=== PATIENT | male | born 1955 | race Caucasian/White ===

== ENCOUNTER 2022-11-14 10:43 | Observation (INO) ==
--- NOTE | 2022-10-29 13:40 | PAT Medication Instructions ---
Medication Instructions Date of Service October 29, 2022 Home Medications atenolol 50 mg tablet 50 mg PO BID lisinopril 20 mg-hydrochlorothiazide 25 mg tablet 1 tab PO BID triamcinolone acetonide 0.1 % topical cream 1 applic topical BID PRN Skin Irritation warfarin 10 mg tablet 5 mg PO Q OTHER DAY krill oil 500 mg capsule 500 mg PO HS rosuvastatin 10 mg tablet 10 mg PO HS vitamin E 400 unit tablet 400 mg PO QAM ASK your prescriber and surgeon warfarin 10 mg tablet 5 mg PO Q OTHER DAY STOP taking 2 weeks before surgery (or as soon as possible if surgery is within 2 weeks) krill oil 500 mg capsule 500 mg PO HS vitamin E 400 unit tablet 400 mg PO QAM STOP taking 24 hours before surgery triamcinolone acetonide 0.1 % topical cream 1 applic topical BID PRN Skin Irritation DO NOT take the morning of surgery lisinopril 20 mg-hydrochlorothiazide 25 mg tablet 1 tab PO BID Take morning of surgery With a small sip of water, OTHERWISE NOTHING TO EAT OR DRINK AFTER MIDNIGHT: atenolol 50 mg tablet 50 mg PO BID Take evening before surgery atenolol 50 mg tablet 50 mg PO BID lisinopril 20 mg-hydrochlorothiazide 25 mg tablet 1 tab PO BID rosuvastatin 10 mg tablet 10 mg PO HS Other Notes If you have any questions please call us at [phone] or [phone] or [phone] or [phone]
--- NOTE | 2022-11-01 11:48 | Anesthesiology Consultation ---
Date of Service November 01, 2022 Assessment & Plan (1) Encounter for pre-operative examination: Plan - check coags STAT am DOS. - Outpatient joint assessment: Patient is currently scheduled for inpatient pathway. If re-evaluated pending system levels during current pandemic/surgeon requests outpatient pathway, patient is not acceptable candidate for outpatient joint program from anesthesia standpoint. Chart Review Chart Review: Acceptable Risk for Surgery and Patient seen in Pre Admission Testing Teaching & Discussion Pre-Anesthesia Teaching/Discussion Notes: Instructed NPO after midnight before surgery, except medications with 15 cc of water. Medication instructions provided according to the PAT guidelines. History Surgery Operation Date: 11/14/22 13:25 Proposed Procedures p Right Anatomic Shoulder Arthroplasty - Ramin Medellin MD Height/Weight Height: 5 ft 10 in Weight: 145.9 kg Allergies Allergy/AdvReac Type Severity Reaction Status Date / Time naproxen Allergy Unknown RASH Verified 10/29/22 09:12 Medications Home Medications Medication Instructions Recorded Confirmed Last Taken atenolol 50 mg tablet 50 mg PO BID 12/26/21 10/29/22 Unknown lisinopril 20 1 tab PO BID 12/26/21 10/29/22 Unknown mg-hydrochlorothiazide 25 mg tablet triamcinolone acetonide 0.1 % 1 applic topical BID PRN Skin 12/26/21 10/29/22 Unknown topical cream Irritation warfarin 10 mg tablet 5 mg PO Q OTHER DAY 12/26/21 10/29/22 Unknown krill oil 500 mg capsule 500 mg PO HS 10/29/22 10/29/22 Unknown rosuvastatin 10 mg tablet 10 mg PO HS 10/29/22 10/29/22 Unknown vitamin E 400 unit tablet 400 mg PO QAM 10/29/22 10/29/22 Unknown Past Medical History Medical History (Updated 11/04/22 @ 09:00 by Lisette Brennan PA-C) Deep vein thrombosis 2016, Right LE (and PE per PCP records),s/p knee injury. On Warfarin History of tachycardia ~1993 --> reason for atenolol. 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 Patient denies chest pain, shortness of breath, dyspnea on exertion, fever, chills, cough, or wheezing. Physical Exam Vital Signs Vitals BP 161/89 P 53 TEMP 98.7 SP02 95% on RA RESP 18 Physical Full cervical extension range of motion without pain TMD <3 finger breadths Mallampati Score 3 Dentition: several caps/crowns, implant front upper tooth; denies chipped or lo ose teeth or bridges Lungs: normal respiratory effort. Clear throughout to auscultation, no adventitious breath sounds Cardiac: regular rate and rhythm, no murmurs noted Carotid arteries: negative bruit bilat Lab Results Anesthesia Preop Results Results Anesthesia Widget: WBC 7.13 K/ul (4.8-10.8) 11/01/22 Hgb 15.5 g/dl (14.0-18.0) 11/01/22 Hct 45.5 % (40.1-51.0) 11/01/22 Plt 146 K/uL (130-400) 11/01/22 Na 141 mmol/L (136-145) 11/01/22 K 4.7 mmol/L (3.5-5.1) 11/01/22 Cl 103 mmol/L (98-107) 11/01/22 CO2 34 mmol/L (21-32) H 11/01/22 BUN 24 mg/dl (6-23) H 11/01/22 Creat 0.94 mg/dl (0.6-1.4) 11/01/22 Glucose Level 101 mg/dl (70-99(Fasting)) H 11/01/22 PT 21.1 Seconds (9.0-12.0) H 11/01/22 PTT 31.4 Seconds (21.0-31.0) H 11/01/22 INR 2.1 (0.9-1.1) H 11/01/22 HA1c 5.8 % (4.5-5.6) H 11/01/22 Blood Type A Positive 11/01/22 Antibody Screen NEGATIVE 11/01/22 Testing Electrocardiogram Date: 11/01/22 Sinus bradycardia, rate 50 bpm Chest X-Ray Date: 11/01/22 The heart is enlarged. The pulmonary vasculature is noncongested. The lungs and pleural spaces are clear. There is no pneumothorax. The skeletal structures are osteopenic. The bony thorax appears intact. Spondylotic change is noted in the spine. IMPRESSION: No active disease in the chest. COVID-19 Risk Screen Screening Information COVID-19 Screen Date: 11/01/22 Exposure 21 Days Family/Household +COVID Last 21 Days: No Exposure 10 Days Any COVID Exposure Last 10 Days: No Symptoms Last 10 Days Experienced COVID Sx Last 10 Days: No + COVID 0-90 Days COVID + in Last 0-90 Days: No
[~2022-11-14 10:43] MED LIST: BUPIVACAINE 0.5 % 5 MG/1 ML PF 10ML VIAL ONE; LR 15ML/HR IV SCH; LR 60ML/HR IV SCH
[2022-11-14 11:25] LABS: INR 1.1 (0.9-1.1); Partial Thromboplastin Ratio 0.9; Partial Thromboplastin Time 24.3 Seconds (21.0-31.0); Prothrombin Time 11.3 Seconds (9.0-12.0)
[2022-11-14] MEDS ORDERED: fentaNYL citrate 100 MCG/2 ML VIAL ONE (12:04)
[2022-11-14] MEDS ORDERED: MIDAZOLAM HCL 1 MG/ML 2ML VIAL ONE (12:04)
--- NOTE | 2022-11-14 12:30 | History & Physical Bridge Note ---
Date of Service November 14, 2022 History & Physical Bridge Note I have examined the patient, reviewed the History & Physical and in the interval since the performance of the History & Physical I have noted the following changes of clinical significance: no changes noted. Coumadin held since pm 11/08/22.
[2022-11-14] MEDS ORDERED: ePHEDrine sulfate 50 MG/ML AMP IV PRN (12:44)
[2022-11-14] MEDS ORDERED: ONDANSETRON INJ 2 MG/ML 2 ML VIAL IV PRN ×2 (12:44→17:57)
[2022-11-14] MEDS ORDERED: HYDROmorphone INJ 2 MG/ML SYR/VIAL IV PRN (12:44)
[2022-11-14] MEDS ORDERED: ATROPINE SULFATE 0.1 MG/ML 10ML SYR IV PRN (12:44)
[2022-11-14] MEDS ORDERED: fentaNYL citrate 100 MCG/2 ML VIAL IV PRN (12:44)
[2022-11-14] MEDS ORDERED: ePHEDrine sulfate 50 MG/ML AMP ONE (15:29)
[2022-11-14] MEDS ORDERED: ROCURONIUM BROMIDE 10 MG/ML 5 ML VIAL IV ONE (15:29)
[2022-11-14] MEDS ORDERED: PROPOFOL IV EMULSION 10 MG/ML 20 ML VIAL IV ONE (15:29)
[2022-11-14] MEDS ORDERED: ONDANSETRON INJ 2 MG/ML 2 ML VIAL ONE (15:29)
[2022-11-14] MEDS ORDERED: LIDOCAINE 2% MPF LOCAL 5 ML VIAL INFIL ONE (15:29)
[2022-11-14] MEDS ORDERED: DEXAMETHASONE SOD INJ 4 MG/ML VIAL ONE (15:29)
[2022-11-14] MEDS ORDERED: NEOSTIGMINE METHYLSULFATE 1 MG/ML 10ML VIAL ONE (16:04)
[2022-11-14] MEDS ORDERED: GLYCOPYRROLATE 0.2 MG/ML VIAL ONE (16:04)
--- NOTE | 2022-11-14 16:45 | Operative Report ---
PG Post Operative Report Pre & Post Diagnosis Operation Date: 11/14/22 13:35 Pre-Op Diagnosis: Right Shoulder Arthritis Post-Op Diagnosis: Right Shoulder Arthritis I identified the patient and participated in the time-out.: Yes Procedure Operation Date: 11/14/22 13:35 Actual Procedures p Right Anatomic Shoulder Arthroplasty, Cemented(Right) - Ramin Medellin MD Surgeon Ramin Medellin MD Histology Aide Ruben Guerra PA-C Estimated Blood Loss 100 Findings See Below [employer] anatomic shoulder arthroplasty was performed with preplanned patient's specific guides: [id number] micro, size 16 micro stem 55 mm length, 50 x 24 humeral head, cemented augmented glenoid right size 5 with trabecular metal post EXAMINATION UNDER ANESTHESIA: Preoperative exam under anesthesia revealed the followin degrees of forward flexion, 20 degrees external rotation at the side, 120 degrees of abduction, 60 degrees of external rotation and 10 degrees of internal rotation with the arm abducted. Postoperatively, range of motion parameters after implantation of prosthesis revealed a stable prosthesis with range of motion parameters as follows: 130 of forward flexion, 60 of external rotation at the side, 90 of abduction, 90 of external rotation with the arm abducted, 20 of internal rotation with the arm abducted. The patient's safe range of motion included the ability to get to the back of the head. Specimens Humeral head for pathology Drains none Anesthesia Type General Regional Complications none Disposition Accompanied Patient To Recovery: No Disposition: Recovery Room Indications 66-year-old male presented to clinic with refractory pain of his shoulder and limited motion because of glenohumeral arthritis. He has maximized nonoperative measures and I did offer him elective total shoulder arthroplasty, reverse or anatomic, based on his intraoperative findings. We did the patient specific guide program with [employer]. We reviewed this. I also reviewed the risks and benefits surgery in detail. Informed consent was documented in the clinic as he desired proceed with surgery to treat his shoulder pain. Description of Procedure The patient was identified in the preoperative holding area. The operative extremity was marked. Regional block was administered by Anesthesia. The patient was then brought to the operating room and placed supine. Preliminary time-out procedure was performed. All were in agreement. General endotracheal anesthesia was induced without any issues. The patient was sat up in around 40-45 degrees of inclination in the beachchair position. Exam under anesthesia was performed confirming the above findings. Preoperative antibiotics were administered. Sequential compressive devices were placed on her bilateral lower extremities for DVT prophylaxis. Bony prominences were inspected, well-padded and free of any evidence for peripheral nerve compression. The operative upper extremity was then prepped and draped in a normal standard fashion, with use of the Arthrex Trimano arm positioner. Prior to incision, a second time-out procedure was performed confirming the patient, site, laterality and the procedure. All were in agreement. 1. Right shoulder open reverse total shoulder replacement with augmented glenoid baseplate with patient specific guide: A deltopectoral incision was utilized. Incision was carried out sharply and with electrocautery through the skin and subcutaneous tissues. The deltopectoral interval was developed. The cephalic vein was taken laterally. Subdeltoid space was developed bluntly. A deltoid brown retractor was placed to retract the deltoid laterally and superiorly. 1 cm of the superior border of the pectoralis major tendon insertion site was released in standard fashion to improve exposure. Clavipectoral fascia was removed with electrocautery. Extensive subacromial bursitis was encountered and this was completely removed with a Bovie. The lateral aspect of the conjoined tendon was then followed to its insertion site on the coracoid. The conjoined tendon was retracted medially. The biceps tendon was identified, enlarged consistent with tendinopathy. It was released from the sheath using a Bovie and followed up into the rotator interval. A tenodesis was performed to the pectoralis major tendon as will be discussed in further detail below. A sharp Hohmann retractor was then placed into the interval and into the joint. Subscapularis tendon was still present and attached on the lesser tuberosity. The articular surface of the humeral head could be appreciated. The subscapularis tendon was then tagged with two #5 Ti-Cron sutures to gain control. Very thin lesser trochanteric osteotomy was conducted using a curved osteotome. The capsule and the subscapularis tendon were then released up the inferior humeral neck as one layer. The humeral head dislocated with successive extension and external rotation. There was significant fracture of the posterior inferior capsule. This was released using electrocautery while palpably protecting the axillary nerve. Visualization of the humeral head revealed significant osteoarthritis and wear. The supraspinatus was intact and without evidence of tendinosis. The cuff appeared sufficient for anatomic shoulder arthroplasty with the glenoid implants as planned. The top of the humeral head was identified. A starting awl was used sound the humeral canal. The bone quality was moderate. We opted to set the retroversion of the humeral cut at around 30 degrees of retroversion for the [place] retroversion. The humeral head resection was then made in parallel fashion to the guide. Sequential reaming was carried out up to a size 16 as the maximal stem size. Successive trial broaches were then broached up to a size 16, which gave us excellent press-fit. The trial stem was left in place. We then proceeded over to glenoid. An anterior glenoid neck retractor was placed. The MGHL and SGHL were released off of the muscular portion of the subscapularis being mindful of palpating and identifying the axillary nerve to make sure it was free of injury during releases. Next, the interval between the IGHL and the muscular portions of the subscapularis was identified. My finger was on the axillary nerve to protect it during releases. The IGHL was then released up to around the 7 o'clock position. A blunt retractor was then placed to retract the humerus posteriorly. A sharp Hohmann retractor was placed at the 12 o'clock position. The glenoid deformity was evaluated with assistance with the bone model. Extraneous capsulolabral tissue was dissected to reveal the bone anatomy. This confirmed our decision to proceed with preoperative virtual planning. The arm was placed around 30 degrees of flexion, 90 degrees of external rotation and 30 degrees of abduction to distract the humerus posteriorly. Labrum was circumferentially removed including the biceps tendon stump with a Bovie. A patient specific guide was used to place an initial guide pin, followed by the more superior pin. The patient specific guide was then removed. The custom reamer guide was placed on the superior pin and the reamer was brought down the central pin. Reaming was conducted based on the guide. Irrigation was used and we confirmed adequate reaming. The base protector bushing was then fastened to protect the surface from the augment reamer. The augment reamer sufficiently removed the cartilage surface. Copious irrigation was performed to irrigate out the joint. The trial size 5 large right augmented glenoid was impacted into place. Humerus was then brought back into view with external rotation, deltoid brown retractor and multiple blunt Homans. A trial head was then placed that seem to best match his anatomy. The humerus was then reduced onto the glenoid with the arm in abduction and external rotation. The arm was taken out of the acosta, taken through a physiologic range of motion. There is seem to be anterior instability with abduction and external rotation at 30 degrees. There also seem to be easy posterior shock. For that reason, I upsized the head and increased offset. The MRI was then reduced onto the glenoid component once again. No evidence for impingement. No evidence for kick off. No shuck. Minimal posterior translation. The arm was taken out of the acosta, taken through a physiologic range of motion. There was acceptable stability and appropriate soft tissue tension. Next, the trial humeral component was removed. We position for final glenoid component implantation. The arm was placed with their degrees abduction external rotation and extension. Posterior glenoid tractor was placed. Anterior and superior glenoid tractors were placed to show the surface of the glenoid. The trial component was removed. Thorough irrigation using pulse lavage was performed. All soft tissue on the periphery and in the central pegs was removed. Implant preparation on the back table was begun. 1 bag of cement was repaired with a 92nd mixing time under vacuum seal. Final glenoid irrigation was continued. Extensive suction was used. Once the glenoid surface clean and dry, cement was placed on the 3 pegs and on the backside of the glenoid component on the back table. The central peg was fixed to the polyethylene matching a trial implant. The final clinic implant was then placed manually down onto the glenoid with good reduction and fit. It was tamped into place. I then held firm pressure on the glenoid with the cement cured. The humeral head was then exposed once again. Humeral canal was copiously irrigated. Three 2.0 mm drill holes were then placed in the bicipital groove just lateral to the lesser tuberosity. Three #5 FiberWire stitches were then run through these drill holes and out the humeral neck for later repair of the subscapularis. The final humeral component was then brought back on to the field and seated firmly into the humerus. The FiberWire stitches for the subscapularis repair were routed around the component. Excellent press-fit was achieved. I retracted the head component and recheck the eccentricity. This was trialed and marked at maximal offset that was seen with the trial. The final humeral head component was placed in the back table of the tray. The eccentrically was dialed into the E position and it was fixed by malleting. Humeral head component was then placed on the stem and tapped down to lock it in. With the final components in place, humeral component was then reduced onto the glenoid and final postoperative range of motion assessment was performed. Stability confirmed. The subscapularis was then repaired to the humerus using a Floyd-Collins configuration. This completed the open total shoulder replacement. The wound was copiously irrigated. In addition, a 1 L dilute Betadine solution was irrigated through the field and left in place for 2 minutes. A repeat normal saline irrigation and lavage was performed to clear out the Betadine. 2. Open biceps tenodesis: As dictated above, enlargement of the biceps tendon was noted consistent with tendinopathy. A tenodesis was opted. The tendon was released from the bicipital sheath using a Bovie and then tenodesed to the pectoralis major tendon using a #2 FiberWire suture in [id number] fashion. The tendon was then followed up as proximal as could be visualized and then tenotomized. Remaining stump was removed just proximal to the tenodesis site. This completed the open biceps tenodesis. The wound was copiously irrigated. The deltopectoral incision was closed with continuous #1 Vicryl suture. Subcutaneous tissues were closed with #1 Vicryl suture in buried, interrupted fashion. Dermal closure was accomplished using 2- 0 Vicryl suture. Final skin closure was with leslie. The wound was dressed with sterile Xeroform, gauze, ABD and contained by Ioban. The patient was placed in a standard sling and turned over to the anesthesia team. The patient tolerated procedure well, was extubated in the operating without complication, and transferred to the PACU in stable condition. DISPOSITION: The patient will remain in sling for a total of 6 weeks. Hand, wrist, and elbow range of motion exercises may be initiated. After 6 weeks, the sling will be discontinued. Formal therapy will be initiated starting with gentle passive range of motion and active range of motion. No strengthening will be permitted before 12 weeks. When strengthening is allowed, only gentle strengthening will be allowed. Physician academic support assistant attestation: Ruben Guerra PA-C was present and scrubbed for the duration of the case. He was essential to prepping/draping, patient positioning, retraction, and assistance with wound closure. I attest to the content of the Intraoperative Record and any orders documented therein. Any exceptions are noted below.
--- NOTE | 2022-11-14 16:46 | Post Operative Brief Note ---
PG Immediate Post Op with CF Date of Surgery November 14, 2022 Pre & Post Diagnosis Operation Date: 11/14/22 13:35 Pre-Op Diagnosis: Right Shoulder Arthritis Post-Op Diagnosis: Right Shoulder Arthritis I identified the patient and participated in the time-out.: Yes Procedure Operation Date: 11/14/22 13:35 Actual Procedures p Right Anatomic Shoulder Arthroplasty, Cemented(Right) - Ramin Medellin MD Surgeon Ramin Medellin MD Stitcher Utility Ruben Guerra PA-C Estimated Blood Loss 100 Findings See Below Specimens Specimen Description: A. Portion of Right Humeral Head Anesthesia Type General Regional
--- NOTE | 2022-11-14 17:28 | XRay Report ---
XR shoulder RT min 2V routine CLINICAL HISTORY: Post shoulder surgery COMPARISON: Right shoulder radiographs August 23, [address] of the right shoulder October 14, 2022 . FINDINGS: Right basilar opacity favors atelectasis. Alignment of the right shoulder arthroplasty is anatomic. There is no definite periprosthetic fracture. A lucency projects over the right humeral lizzie physis, distal to the humeral component. There are skin leslie. No unexpected radiopaque foreign bod ies are present. IMPRESSION: 1. Status post right shoulder arthroplasty. No unexpected radiopaque foreign bodies. No definite mary prosthetic fracture. 2. Lucency projecting over the right humeral diaphysis. This is likely artifactual. A periprosthetic fracture is considered less likely however follow-up radiographs could be obtained. ACT 112: Negative or not required by law. Electronically signed by: Migel Brown M.D. 11/14/2022 5:27 PM
[2022-11-14] MEDS ORDERED: TRIAMCINOLONE ACET 0.1% CR 15 GM TUBE TOP PRN (17:57)
[2022-11-14] MEDS ORDERED: METOCLOPRAMIDE HCL INJ 5 MG/ML 2 ML VIAL IV PRN (17:57)
[2022-11-14] MEDS ORDERED: MAGNESIUM HYDROXIDE SUSP 30 ML UDC PO PRN (17:57)
[2022-11-14] MEDS ORDERED: NALOXONE HCL 0.4 MG/1 ML VIAL/CARP IV PRN (17:57)
[2022-11-14] MEDS ORDERED: bisacodyL 10 MG SUPP PR PRN (17:57)
--- NOTE | 2022-11-14 18:12 | Anesthesiology Progress Note ---
Date of Service November 14, 2022 Anesthesia Post Procedure Vital Signs Vital Signs: Temp Pulse Pulse Resp BP BP Pulse Ox 11/14/22 18:00 36.8 C 60 16 124/75 95 11/14/22 17:45 62 18 131/64 95 11/14/22 17:35 36.9 C 56 L 16 129/64 96 11/14/22 17:25 61 20 135/65 95 11/14/22 17:15 60 18 140/69 96 11/14/22 17:05 65 20 136/62 94 11/14/22 16:57 36.1 C L 72 14 128/63 95 11/14/22 11:08 37.2 C 58 L 16 165/83 H 95 O2 Del Method O2 Flow Rate 11/14/22 18:00 Nasal Cannula 2 11/14/22 17:45 Nasal Cannula 2 11/14/22 17:35 Nasal Cannula 2 11/14/22 17:25 Nasal Cannula 2 11/14/22 17:15 Oxymask 4 11/14/22 17:05 Oxymask 7 11/14/22 16:57 Oxymask 7 11/14/22 11:08 Room Air Pain Intensity Right Shoulder: Pain Intensity: 4 Transfer of Care Handoff Completed per policy Notes Mental Status: alert / awake / arousable and participated in evaluation Patient Amnestic to Procedure: Yes Nausea / Vomiting: adequately controlled Pain: adequately controlled Airway Patency, RR, SpO2: stable & adequate BP & HR: stable & adequate Hydration State: stable & adequate Anesthetic Complications: no major complications apparent and Pt Satisfied with anesthetic care
[2022-11-14] MEDS: oxyCODONE HCL IR 5 MG TAB (IMMEDIATE RELEASE) PO PRN ×2 (18:50→22:24)
[2022-11-14] MEDS: SODIUM CHLORIDE 0.9% 1000ML 1,000 ML IV SCH ×2 (18:50→23:10)
[2022-11-14] MEDS: DOCUSATE SODIUM 100 MG CAP PO SCH (19:55)
[2022-11-14] MEDS: ATENOLOL 50 MG TABLET PO SCH (19:56)
[2022-11-14] MEDS ORDERED: WARFARIN SOD 7.5 MG TAB PO SCH (20:00)
[2022-11-14] MEDS ORDERED: SENNA 8.6 MG TAB PO SCH (21:00)
[2022-11-14] MEDS ORDERED: ROSUVASTATIN CALCIUM 10 MG TAB PO SCH (21:00)
[2022-11-14] MEDS ORDERED: LISINOPRIL/HCTZ 20/25MG 1 TAB PO SCH (21:00)
[2022-11-14] MEDS: ceFAZolin 2000MG 2,000 MG/15 ML SYR IV SCH (22:21)
[2022-11-14] MEDS: ACETAMINOPHEN 500 MG TAB PO SCH (22:21)
[2022-11-15] MEDS: ACETAMINOPHEN 500 MG TAB PO SCH (06:25)
[2022-11-15] MEDS: ceFAZolin 2000MG 2,000 MG/15 ML SYR IV SCH (06:26)
[2022-11-15] MEDS: DOCUSATE SODIUM 100 MG CAP PO SCH (07:22)
[2022-11-15] MEDS: ATENOLOL 50 MG TABLET PO SCH (07:22)
[2022-11-15 07:33] LABS: INR 1.1 (0.9-1.1); Prothrombin Time 11.4 Seconds (9.0-12.0)
[2022-11-15 07:34] LABS: Basophils # (auto) 0.02 K/uL (0-0.2); Basophils % (auto) 0.2 %; Eosinophils # (auto) 0.02 K/uL (0-0.50); Eosinophils % (auto) 0.2 %; Hematocrit (blood only) 39.1 % (42.0-52.0); Hemoglobin 13.2 g/dl (14.0-18.0); Immature Granulocytes # (auto) 0.04 K/uL (0.01-0.20); Immature Granulocytes % (auto) 0.3 %; Lymphocytes # (auto) 1.68 K/uL (1.2-3.4); Lymphocytes % (auto) 13.8 %; Mean Corpuscular Hemoglobin 31.3 pg (25.0-34.0); Mean Corpuscular Hgb Conc 33.8 g/dL (32.0-36.0); Mean Corpuscular Volume 92.7 fL (80.0-100.0); Monocytes # (auto) 1.54 K/uL (0.11-0.59); Monocytes % (auto) 12.7 %; Neutrophils # (auto) 8.87 K/uL (1.40-6.50); Neutrophils % (auto) 72.8 %; Platelet Count 133 K/uL (130-400); RDW Coefficient of Variation 13.2 % (11.5-14.5); RDW Standard Deviation 45.1 fL (36.4-46.3); Red Blood Count 4.22 M/uL (4.70-6.10); White Blood Count 12.17 K/ul (4.8-10.8)
[2022-11-15 08:24] LABS: Creatinine Clr Calc Pharmacy 66.7 ml/min; Potassium 3.7 mmol/L (3.5-5.1)
--- NOTE | 2022-11-15 08:33 | Orthopedic Progress Note ---
Date of Service November 15, 2022 Assessment & Plan (1) History of right shoulder replacement: POD1 s/p R TSA. Making progress as expected - PT/OT today - Finish abx ppx - Wean to oral pain control - Discharge today after PT/OT Subjective Reports good tolerance of pain. Block effects still felt. Hand starting to feel normal. No issues with diet. Insterested in going home today. Review of Systems All systems reviewed & are unremarkable except as noted in HPI & below. Physical Exam R shoulder: dressing c/d/i. +flex ex wrist/elbow, digits. SILT except about axillary region. Does fire deltoid. Constitutional WD/WN, vitals as above no acute distress and not intoxicated appearing Respiratory normal respiratory effort; no labored breathing Cardiovascular Extremities: normal capillary refill Results & Data Results & Data Laboratory Results H & H 11/15/22 Range/Units 06:46 Hgb 13.2 L (14.0-18.0) g/dl Hct 39.1 L (42.0-52.0) % Coagulation 11/14/22 11/15/22 Range/Units 10:58 06:46 INR 1.1 1.1 (0.9-1.1) Diagnostic Findings Radiographs reviewed- cortical lucency at distal tip of stem. Will monitor. No change to POC. PG Care Time/CCT Total # of Minutes Spent Total Time Spent with Patient: Total time spent is greater than 50% in coordination of care (as documented) at patient's floor/unit and/or counseling patient: Coding Level of Care Code 08907 Post Operative Follow-Up Diagnoses History of right shoulder replacement Z96.611
[2022-11-15 08:37] LABS: BUN Creatinine Ratio 22.2 (10-20); Calcium 9.3 mg/dl (8.5-10.1); Est GFR (African American) 47.3 ml/min; Est GFR (Non-African American) 40.8 ml/min
[2022-11-15] MEDS ORDERED: VITAMIN E 400 UNIT PO SCH (09:00)
[2022-11-15] MEDS ORDERED: MULTIVITAMIN TAB PO SCH (09:00)
== END 2022-11-15 11:08 | disposition home or self-care (01) ==
LOC: ASU 10:43 → 3E 10:43